=== PATIENT | female | born 1990 | race Caucasian/White ===

== ENCOUNTER 2018-06-22 13:45 | Emergency (ER) | payer OTHER ==
[~2018-06-22] VITALS: Ht 157.5 cm; Wt 73.0 kg
[~2018-06-22 13:45] MED LIST: CONEX TABLET1 EACH PO; MEDROL4 MG PO; MONTELUKAST SOD10 MG; PROVENTIL3 ML/2.5 M IH; TUSICOF LIQUID120 ML PO
== END 2018-06-22 17:44 | disposition home or self-care (01) ==
LOC: ER 13:45
DX: J06.9 Acute upper respiratory infection, unspecified (principal)

== ENCOUNTER 2019-02-18 09:31 | Emergency (ER) | payer OTHER ==
[~2019-02-18] VITALS: Ht 154.9 cm; Wt 65.8 kg
[2019-02-18] MEDS ORDERED: AZITHROMYCIN1 GM PO (09:49)
== END 2019-02-18 14:41 | disposition home or self-care (01) ==
LOC: ER 09:31
DX: J11.1 Influenza due to unidentified influenza virus with other respiratory manifestations (principal)

== ENCOUNTER 2019-02-20 14:43 | Emergency (ER) | payer OTHER ==
[~2019-02-20] VITALS: Ht 154.9 cm; Wt 65.8 kg
[~2019-02-20 14:43] MED LIST changes: +AZITHROMYCIN1 GM PO
[2019-02-20] MEDS ORDERED: OSEL75CA (14:51)
== END 2019-02-20 17:10 | disposition home or self-care (01) ==
LOC: ER 14:43
DX: J09.X2 Influenza due to identified novel influenza A virus with other respiratory manifestations (principal)

== ENCOUNTER 2020-08-20 11:48 | Emergency (ER) | payer OTHER ==
[~2020-08-20] VITALS: Ht 157.5 cm; Wt 65.8 kg
[~2020-08-20 11:48] MED LIST changes: +OSEL75CA
[2020-08-20] MEDS ORDERED: ZITHROMAX500 MG PO (15:25)
== END 2020-08-20 15:37 | disposition home or self-care (01) ==
LOC: ER 11:48
DX: B34.9 Viral infection, unspecified (principal); B96.0 Mycoplasma pneumoniae [M. pneumoniae] as the cause of diseases classified elsewhere; Z03.818 Encounter for observation for suspected exposure to other biological agents ruled out

== ENCOUNTER 2020-08-21 16:17 | Emergency (ER) | payer OTHER ==
[~2020-08-21] VITALS: Ht 157.5 cm; Wt 65.8 kg
[~2020-08-21 16:17] MED LIST changes: +ZITHROMAX500 MG PO
== END 2020-08-21 22:31 | disposition home or self-care (01) ==
LOC: ER 16:17
DX: J45.998 Other asthma (principal)

== ENCOUNTER 2021-12-11 21:26 | Emergency (ER) | payer OTHER ==
[~2021-12-11] VITALS: Ht 157.5 cm; Wt 77.1 kg
[2021-12-12] MEDS ORDERED: ANUSOL-HC25 MG RECTAL (04:21)
[2021-12-12] MEDS ORDERED: ANUSOL-HC30 G2 TOP (04:21)
[2021-12-12] MEDS ORDERED: CEPHALEXIN500 MG PO (04:21)
[2021-12-12] MEDS ORDERED: MIRALAX510 GM PO (04:27)
== END 2021-12-12 04:35 ==
LOC: ER 21:26
DX: K64.9 Unspecified hemorrhoids (principal); N39.0 Urinary tract infection, site not specified; Z88.8 Allergy status to other drugs, medicaments and biological substances; Z91.013 Allergy to seafood

== ENCOUNTER 2022-02-08 14:23 | Emergency (ER) | payer OTHER ==
[~2022-02-08] VITALS: Ht 157.5 cm; Wt 79.8 kg
[~2022-02-08 14:23] MED LIST changes: +ANUSOL-HC25 MG RECTAL; +ANUSOL-HC30 G2 TOP; +CEPHALEXIN500 MG PO; +MIRALAX510 GM PO
[2022-02-08] MEDS ORDERED: PROAIR HFA8.5 GM IH (14:49)
[2022-02-08] MEDS ORDERED: MOLNUPIRAVIR (200 MG PO (17:11)
== END 2022-02-08 17:32 | disposition home or self-care (01) ==
LOC: ER 14:23
DX: U07.1 COVID-19 (principal); Z88.8 Allergy status to other drugs, medicaments and biological substances; Z91.013 Allergy to seafood

== ENCOUNTER 2022-07-08 13:05 | Emergency (ER) | payer OTHER ==
[~2022-07-08] VITALS: Ht 157.5 cm; Wt 62.6 kg
[~2022-07-08 13:05] MED LIST changes: +MOLNUPIRAVIR (200 MG PO; +PROAIR HFA8.5 GM IH
== END 2022-07-08 17:42 | disposition home or self-care (01) ==
LOC: ER 13:05
DX: B34.9 Viral infection, unspecified (principal); Z20.822 Contact with and (suspected) exposure to COVID-19